=== PATIENT | female | born 1985 | race African-American/Black ===

== ENCOUNTER 2016-12-04 08:19 | Emergency (ER) | payer BC ==
[~2016-12-04] VITALS: Ht 167.6 cm; Wt 93.3 kg
[~2016-12-04 08:19] MED LIST: ENDOCET 5-3251 EACH PO; IBUPROFEN800 MG PO; Motrin PO; PRENATAL TABLE1 EAC3 PO; Percocet 5/325,Endoc PO; ZYRTEC10 M2 PO
[2016-12-04] MEDS ORDERED: CIPRO500 MG PO (09:06)
[2016-12-04 09:19] LABS: HEMATOCRIT 37.3 % (36.0-46.0); MCH 32.5 PG (29.0-34.0); MCHC 34.9 G/DL (30.0-36.0); MCV 93.3 FL (83-99); MEAN PLAT.VOLUME 8.8 uM^3 (9.5-12.4); PLATELET COUNT 245 K/uL (156-360); RBC DIS.WIDTH-CV 11.8 % (11.8-14.6); RBC DIS.WIDTH-SD 39.1 % (39-53); WHITE BLOOD COUNT 6.5 K/uL (4.1-10.2)
[2016-12-04 09:38] LABS: CHLORIDE 105 mEq/L (99-109); POTASSIUM 3.8 mEq/L (3.7-5.4); SODIUM 140 mEq/L (136-147)
[2016-12-04 09:40] LABS: GLUCOSE 99 mg/dL (70-99)
[2016-12-04 09:41] LABS: ANION GAP 9 MEQ/L (2-14)
[2016-12-04 09:43] LABS: ALKALINE PHOSPHATASE 58 IU/L (3-129)
[2016-12-04 09:44] LABS: GFR ESTIMATE (CALCULATED) > 59 mL/min/
[2016-12-04 09:45] LABS: UREA NITROGEN (BUN) 4 mg/dL (9-23)
[2016-12-04 10:09] LABS: ADD MIUA? YES; BILIRUBIN NEGATIVE; BLOOD NEGATIVE; COLOR DK YELLOW ((YELLOW)); GLUCOSE (STRIP) NEGATIVE; KETONES TRACE; LEUKOCYTES NEGATIVE; NITRITE NEGATIVE; PROTEIN (STRIP) 30; SPECIFIC GRAVITY 1.023 (1.000-1.030)
[2016-12-04 10:10] LABS: INTERNAL CONTROL VALID? YES
[2016-12-04 10:23] LABS: BACTERIA 1+ /HPF; CASTS NONE SEEN /LPF; CRYSTALS NONE SEEN; EPITHELIAL CELLS 2+ /HPF; MUCUS NONE SEEN /LPF; PATHOLOGICAL CAST NONE SEEN; SMALL ROUND CELL NONE SEEN; UCUL ADDED? NO; WHITE BLOOD CELLS 0-5 /HPF (0-5); YEAST-LIKE CELL NONE SEEN
[2016-12-04] MEDS ORDERED: MUCUS ER600 MG PO (11:05)
[2016-12-04] MEDS ORDERED: ZOFRAN ODT4 MG PO (11:05)
[2016-12-04] MEDS ORDERED: BENTYL20 MG PO (11:05)
[2016-12-04 11:25] VITALS: BP 152/99
== END 2016-12-04 11:29 | disposition home or self-care (01) ==
LOC: EME 08:19
PROVIDERS: Nurse Practitioner Family
DX: R10.84 Generalized abdominal pain (principal); R11.2 Nausea with vomiting, unspecified; J06.9 Acute upper respiratory infection, unspecified; F17.200 Nicotine dependence, unspecified, uncomplicated; Z71.6 Tobacco abuse counseling
CPT/HCPCS: 74020; 80053; 81003; 84703; 85027; 99281; 99283